=== PATIENT | female | born 1985 | race Two or more races ===

== ENCOUNTER 2025-02-21 15:46 | Emergency (ER) | payer OTHER ==
[~2025-02-21] VITALS: Ht 162.6 cm; Wt 65.4 kg
[2025-02-21 15:53] VITALS: O2SAT 100
[2025-02-21 16:45] LABS: BASOPHILS % 0.3 % (0.0-2.0); EOSINOPHILS % 0.3 % (0.0-5.0); HEMATOCRIT. 31.9 % (36.0-48.0); HEMOGLOBIN. 10.2 g/dL (12.0-16.0); LYMPHOCYTES % 20.9 % (20.0-50.0); MEAN CORPUSCULAR HEMOGLOBIN 27.3 pg (28.0-32.0); MEAN CORPUSCULAR HGB CONC 31.9 g/dL (31.0-37.0); MEAN CORPUSCULAR VOLUME 85.7 fL (81.0-99.0); MEAN PLATELET VOLUME 8.3 fl (7.4-10.4); NEUTROPHILS % 71.5 % (40.0-76.0); PLATELET 329 x1000/uL (130-400); RED BLOOD CELL COUNT 3.72 mill/uL (4.2-5.4); RED CELL DISTRIBUTION WIDTH 14.9 % (11.6-14.6); WHITE BLOOD COUNT 8.3 x1000/uL (4.5-11.0)
[2025-02-21 16:53] LABS: CHLORIDE 104 mEq/L (98-107); SODIUM 140 mEq/L (136-145)
[2025-02-21 16:54] LABS: CALCIUM 9.4 mg/dL (8.7-10.4); CARBON DIOXIDE 25 mEq/L (21-32)
[2025-02-21 16:59] LABS: CREATININE 0.8 mg/dL (0.6-1.0); GLUCOSE 89 mg/dL (70-105); UREA NITROGEN BLOOD 7 mg/dL (9-23)
[2025-02-21 17:01] LABS: ALANINE AMINOTRANSFERASE 8 IU/L (10-49); ALBUMIN 4.4 g/dL (3.2-4.8); ASPARTATE AMINOTRANSFERASE 17 IU/L (<34); BILIRUBIN DIRECT 0.1 mg/dL (<=3.0); BILIRUBIN TOTAL 0.4 mg/dL (0.1-1.0)
[2025-02-21 17:02] LABS: PROTEIN TOTAL 8.4 g/dL (6.0-8.3)
[2025-02-21] MEDS: KETOROLAC 30MG/ML VIAL IM STA (17:05)
[2025-02-21] MEDS ORDERED: HYDR453.3 TP (17:14)
[2025-02-21 17:26] VITALS: BP 118/76; PULSE 95; RESP 16; TEMP 37.1; O2SAT 100
== END 2025-02-21 17:27 | disposition home or self-care (01) ==
LOC: ER 15:46
DX: T23.102A Burn of first degree of left hand, unspecified site, initial encounter (principal); T23.101A Burn of first degree of right hand, unspecified site, initial encounter; T79.9XXA Unspecified early complication of trauma, initial encounter; F41.9 Anxiety disorder, unspecified; Z90.49 Acquired absence of other specified parts of digestive tract; X08.8XXA Exposure to other specified smoke, fire and flames, initial encounter; Y93.89 Activity, other specified; Y92.89 Other specified places as the place of occurrence of the external cause; Y99.8 Other external cause status
CPT/HCPCS: 99283; 80076; 80048; 83690; 85025; 36415; 96372; J1885

== ENCOUNTER 2025-02-28 22:13 | Emergency (ER) | payer OTHER ==
[~2025-02-28] VITALS: Ht 162.6 cm; Wt 64.0 kg
[~2025-02-28 22:13] MED LIST: HYDR453.3 TP
[2025-02-28 23:04] VITALS: TEMP 37; O2SAT 100
[2025-03-01 01:56] VITALS: BP 141/84; PULSE 77; RESP 16; O2SAT 98
== END 2025-03-01 01:57 | disposition home or self-care (01) ==
LOC: ER 22:13
DX: T23.001A Burn of unspecified degree of right hand, unspecified site, initial encounter (principal); T79.9XXA Unspecified early complication of trauma, initial encounter; X08.8XXA Exposure to other specified smoke, fire and flames, initial encounter; Y93.89 Activity, other specified; Y92.89 Other specified places as the place of occurrence of the external cause; Y99.8 Other external cause status
CPT/HCPCS: 99281